=== PATIENT | male | born 1955 | race Two or more races ===

== ENCOUNTER 2025-01-17 12:23 | Emergency (ER) | payer OTHER ==
[~2025-01-17] VITALS: Ht 175.3 cm; Wt 77.1 kg
[2025-01-17] MEDS ORDERED: LOSARTAN POTAS100 MG PO (13:50)
[2025-01-17 17:11] LABS: BASO % 0.5 % (0.1-1.2); EOS # 0.16 (0.04-0.54); EOS % 3.9 % (0.7-7.0); LYMPH # 0.39 (1.18-3.74); LYMPH % 9.6 % (19.3-53.1); MEAN PLATELET VOLUME 9.10 fl (9.4-12.4); MONO # 0.45 (0.24-0.82); MONO % 11.0 % (4.7-12.5); NEUT # 3.05 (1.56-6.13); NEUT % 74.8 % (34.0-71.1); RED CELL DISTRIBUTION WIDTH 14.6 % (11.6-14.4)
[2025-01-17 17:30] LABS: INR 1.0
[2025-01-17 17:37] LABS: ALT/SGPT 61.0 U/L (12-78); AST/SGOT 32.0 U/L (15-37); BILIRUBIN TOTAL 0.61 mg/dL (0.3-1.2); BUN CREA RATIO 23.0 (7.0-25.0); CREATININE SERUM 0.92 mg/dL (0.70-1.30); GFR 81.57; GLOBULINA 3.2 G/DL (2.4-3.5); GLUCOSE FASTING 104.0 mg/dL (65-100); OSMOLALITY SERUM 286.0 MOSM/KG (275-295)
[2025-01-17 18:06] LABS: URINE APPEARANCE Clear; URINE BILIRRUBIN Negative (NEGATIVE); URINE COLOR Yellow; URINE GLUCOSE Negative (NEGATIVE); URINE KETONE Negative (NEGATIVE); URINE LEUKOCYTE Negative; URINE NITRATE Negative; URINE PROTEIN Negative (NEGATIVE); URINE UROBILINOGEN 0.2 E.U./dl
[2025-01-17 18:11] LABS: URINE BACTERIA 12.5 uL (0.0-1933); URINE EPITHELIAL CELLS 6.7 uL (0.0-38.8); URINE RBC 17.2 uL (0.0-20.8); URINE WBC 9.3 uL (0.0-23.2)
[2025-01-17 18:18] LABS: URINE BLOOD Traces; URINE CAST 0.00 uL (0.0-1.40)
== END 2025-01-17 22:21 ==
LOC: ER 12:24
PROVIDERS: General Practice
DX: R41.3 Other amnesia (principal); R41.0 Disorientation, unspecified; I10 Essential (primary) hypertension; Z85.46 Personal history of malignant neoplasm of prostate; E78.00 Pure hypercholesterolemia, unspecified